=== PATIENT | male | born 1955 | race Two or more races ===

== ENCOUNTER → 2020-04-13 10:33 | Outpatient (BNVA) | payer MEDICARE, MEDICAID, SELFPAY | PROVIDERS: PCP Internal Medicine; Visit Provider Internal Medicine Pulmonary Disease | DX: R06.00 Dyspnea, unspecified (principal); J45.909 Unspecified asthma, uncomplicated; G47.33 Obstructive sleep apnea (adult) (pediatric) | CPT/HCPCS: 99202 ==

== ENCOUNTER → 2020-04-24 13:38 | Outpatient (BNVA) | payer MEDICARE, MEDICAID, SELFPAY | PROVIDERS: PCP Internal Medicine; Visit Provider Nurse Practitioner Family | DX: Z76.89 Persons encountering health services in other specified circumstances (principal) | CPT/HCPCS: Q3014 ==

== ENCOUNTER 2020-05-08 10:23 | Outpatient (REF) | payer MEDICARE, MEDICAID, SELFPAY | END 2020-05-08 10:24 | disposition home or self-care (01) | LOC: HO.RESP 10:23 | PROVIDERS: Visit Provider Internal Medicine Pulmonary Disease | DX: Z13.89 Encounter for screening for other disorder (principal) ==

== ENCOUNTER 2020-05-14 10:40 | Outpatient (REF) | payer MEDICARE, MEDICAID, SELFPAY ==
--- NOTE | 2020-05-14 17:15 | PFT_ITS ---
FLOWS: FEV1 is 121% of predicted at 2.97 L. FVC 105% of predicted at 3.47 L. FEV1 to FVC ratio of 0.86. No bronchodilator response. LUNG VOLUMES: Total lung capacity 84% of predicted at 4.55 L. Residual volume 54% of predicted at 1.04 L. Slow vital capacity 101% of predicted at 3.51 L. Expiratory reserve volume 85% of predicted at 0.69 L. Diffusion capacity is normal. In comparison to pulmonary function tests performed in November of 2017, FEV1 has been without significant changes; FVC has increased by 0.21 L; total lung capacity has increased by 0.38 L; residual volume and slow vital capacity have been without significant changes; expiratory reserve volume has increased by 0.5 L; diffusion capacity has increased by 1.39 mL/minute per mmHg. IMPRESSION: No obstructive or restrictive ventilatory defect. No bronchodilator response. Essentially normal pulmonary function tests. MD TONY Hernandez/MODL / [id number]
== END 2020-05-14 10:41 | disposition home or self-care (01) ==
LOC: HO.RESP 10:40
PROVIDERS: PCP Internal Medicine; Visit Provider Internal Medicine Pulmonary Disease
DX: R06.00 Dyspnea, unspecified (principal)
CPT/HCPCS: 94060; 94727; 94729

== ENCOUNTER → 2020-05-25 12:56 | Outpatient (REF) | payer MEDICARE, MEDICAID, SELFPAY ==
--- NOTE | 2020-05-25 13:00 | CA_ITS ---
Transthoracic Echocardiogram Patient (Last, First, Middle): Mitchel Castillo, Gender: Male Date of : 1955 Age: 64 Procedure Date: 05/25/2020 Procedure Type: Transthoracic Echocardiogram Location: OP Height: 162.56 cm Weight: 78.93 kg BSA: 1.84 m2 Heart Rate: bpm BP: 130 / 70 mmHg Quarryman: ANDRÉS Referring MD: Sander Smith MD Symptoms: R06.00 Study Quality: Fair ECG Rhythm: Sinus Conclusions: - The left ventricular systolic function is low normal. The visually estimated ejection fraction is between 50-55%. - Possible hypokinesis in the basal inferior wall, but limited endocardial definition. - No obvious valvular pathology seen on this study. Findings Left Ventricle Normal left ventricular cavity size. There is mildly increased left ventricular wall thickness. The left ventricular systolic function is low normal. The visually estimated ejection fraction is between 50-55%. Diastolic function is normal for age. E/E prime ratio is <8, consistent with normal filling pressures. Possible hypokinesis in the basal inferior wall, but limited endocardial definition. Right Ventricle Normal right ventricular cavity size and systolic function. Atria The left atrium is normal in size. The right atrium is normal in size. Aortic Valve There is a normal trileaflet aortic valve. There is no aortic valve stenosis. There is no aortic valve regurgitation. Mitral Valve The mitral valve appears normal. There is no mitral valve regurgitation. There is no mitral valve stenosis. Pulmonic Valve The pulmonic valve was not well visualized. Tricuspid Valve Normal tricuspid valve structure. There is trace tricuspid valve regurgitation. The pulmonary artery systolic pressure is normal. Great Vessels The aortic annulus, sinuses of valsalva, asc aorta, and aortic arch are normal in size. Venous The inferior vena cava is normal in size and collapses greater than 50% with inspiration. Pericardium/Pleural There is a trivial pericardial effusion. Prior Study Comparison No prior study available for comparison. Recommendations, Care & Conclusions No obvious valvular pathology seen on this study. Measurements 2D Linear Measurements IVSd: 1.07 0.6-0.9/0.6-1.0 cm LVIDd: 3.87 3.9-5.3/4.2-5.9 cm LVIDd Index: 2.10 2.4-3.2/2.2-3.1 cm/m2 LVIDs: 2.65 2.0-3.6 cm LVPWd: 1.06 0.7-1.1 cm Ao Root: 3.20 2.1-3.5 cm LA Diam: 2.80 2.7-3.8/3.0-4.0 cm LAIDs Index: 1.52 1.5-2.3 cm/m2 LV Mass: 164.36 67-162/88-224 g LV Mass Index: 89.33 43-95/49-115 g/m2 LVOT Diam: 2.20 3.0+(-)1.3 cm 2D Systolic Function EF 4C: 54.80 >55% EF 2C: 51.40 >55% EF BiP: 53.90 >55% Mitral Valve MV Pk E: 0.56 MV PK A: 0.67 MV Decel Time: 317.00 E/A: 0.80 E'Lateral: 7.40 E'Medial: 6.85 E/E' Med: 8.10 E/E' Lat: 7.50 PHT: 93.00 MVA PHT: 2.37 Decel [place]: 1.76 Aortic Valve AoV Pk Madhu: 1.29 AoV Mn Madhu: 0.86 AoV VTI: 0.26 AoV Pk Grad: 7.00 Aov Mn Grad: 3.00 YOAV Cont.VTI: 2.41 LVOT LVOT Pk Madhu: 0.77 LVOT Mn Madhu: 0.56 LVOT VTI: 0.17 LVOT Pk Grad: 2.00 LVOT Mn Grad: 1.00 LVOT Diam: 2.20 LVOT Area: 3.80 Diastolic Function MV Pk E: 0.56 MV Pk A: 0.67 E/A: 0.80 E'Medial: 6.85 E/E' Med: 8.10 E' Laterial: 7.40 E/E' Lat: 7.50 Tricuspid Valve TR Pk Madhu: 1.68 TR Pk Grad: 11.00 RA Press: 3.00 RVSP: 14.00 Great Vessels Aorta Ao Root-2D: 3.20 2.0-3.7 cm Ao Asc: 3.10 2.1-3.4 cm Ao Arch: 2.20 Updated in Other Vendor System with Status of Final Mario Spain MD electronically signed on 05/26/2020 11:09:55 AM with status of Final
== END ==
LOC: HO.CARD 12:56
PROVIDERS: Visit Provider Internal Medicine Pulmonary Disease
DX: R06.00 Dyspnea, unspecified (principal)
CPT/HCPCS: 93306

== ENCOUNTER 2020-05-28 09:13 | Outpatient (REF) | payer MEDICARE, MEDICAID, SELFPAY ==
[2020-05-28 11:26] LABS: Hematocrit 47.4 % (42-52); Hemoglobin 15.9 g/dl (14.0-18.0); Mean Corpuscular HGB Conc 33.5 g/dl (31.0-36.0); Mean Corpuscular Hemoglobin 29.1 pg (27.0-33.0); Mean Corpuscular Volume 86.7 fL (80-98); Mean Platelet Volume 9.6 fL (9.4-12.4); Platelet Count 258 X10*3/uL (160-400); Red Blood Count 5.47 X10*6/uL (4.60-5.80); Red Cell Distribution Width 13.1 % (11.0-16.0); White Blood Count 7.7 X10*3/uL (4.8-10.8)
[2020-05-28 11:30] LABS: Prothrombin Time 11.7 SEC (10.8-13.0)
[2020-05-28 11:53] LABS: Anion Gap 14 (12-20); Blood Urea Nitrogen 22 mg/dL (9-16); Calcium 9.3 mg/dL (8.4-10.2); Carbon Dioxide 26 mmol/L (22-29); Chloride 105 mmol/L (96-108); Estimated Glomerular Filt Rate > 60; Glucose Random 96 mg/dL (60-115); Potassium 4.2 mmol/L (3.3-5.1); Sodium 141 mmol/L (135-145)
== END 2020-05-28 09:14 | disposition home or self-care (01) ==
LOC: HO.LAB 09:13
PROVIDERS: PCP Internal Medicine; Visit Provider Internal Medicine Cardiovascular Disease
DX: R06.09 Other forms of dyspnea (principal); J44.9 Chronic obstructive pulmonary disease, unspecified; I10 Essential (primary) hypertension; Z79.899 Other long term (current) drug therapy
CPT/HCPCS: 36415; 80048; 85027; 85610; 93005; 99202

== ENCOUNTER → 2020-06-10 09:34 | Outpatient (BNVA) | payer MEDICARE, MEDICAID, SELFPAY | PROVIDERS: PCP Internal Medicine; Visit Provider Internal Medicine Pulmonary Disease | DX: Z01.811 Encounter for preprocedural respiratory examination (principal); J45.909 Unspecified asthma, uncomplicated; F45.8 Other somatoform disorders; Z87.891 Personal history of nicotine dependence | CPT/HCPCS: 99212 ==

== ENCOUNTER 2020-06-17 15:15 | Outpatient (REF) | payer MEDICARE, MEDICAID, SELFPAY ==
--- NOTE | ~2020-06-17 | MR_ITS ---
EXAMINATION: MR LUMBAR SPINE WITHOUT CONTRAST CLINICAL INFORMATION: Low back pain. COMPARISON: Lumbar spine radiographs 07/26/2012. TECHNIQUE: MRI of the lumbar spine was obtained using routine sequences without contrast. FINDINGS: Alignment is normal. Vertebral heights are preserved. No acute bone marrow signal changes. There is slight loss of intervertebral disc height and T2 signal intensity at L5-S1 related to disc degeneration. The tip of the conus medullaris is located at L1-L2. No mass effect on the conus. Visualized distal cord signal intensity is normal. At L1-L2 the annular contour is normal. No canal or neuroforaminal compromise. At L2-L3 the annular contour is normal. No canal or neuroforaminal compromise. At L3-L4 the annular contour is normal. No canal or neuroforaminal compromise. At L4-L5 there is a slightly bulging disc. Bilateral facet degenerative change. No canal stenosis. No mass effect on the traversing or foraminal nerve roots. At L5-S1 there is a slightly bulging disc. Bilateral facet degenerative change. No canal stenosis. Mild mass effect on the right L5 foraminal nerve root. Limited visualization of retroperitoneal anatomy reveals a well marginated benign-appearing cystic lesion arising from the left kidney. Psoas and paraspinal muscle groups are symmetric. MR/MR lumbar spine wo con IMPRESSION: There is disc degeneration at levels of L4-L5 and L5-S1. No canal stenosis. A bulging disc in conjunction with facet degenerative change at L5-S1 causes mild mass effect on the right L5 foraminal nerve root. Otherwise no mass effect on the traversing or foraminal nerve roots elsewhere within the lumbar spine.
== END 2020-06-17 15:16 | disposition home or self-care (01) ==
LOC: HO.MRI 15:15
PROVIDERS: Visit Provider Internal Medicine
DX: M54.5 Low back pain (principal)
CPT/HCPCS: 72148

== ENCOUNTER → 2020-08-05 09:00 | Outpatient (BNVA) | payer MEDICARE, MEDICAID, SELFPAY | PROVIDERS: PCP Internal Medicine; Visit Provider Nurse Practitioner Family ==

== ENCOUNTER 2021-09-03 12:02 | Outpatient (REF) | payer MEDICARE, MEDICAID, SELFPAY ==
--- NOTE | ~2021-09-03 | XR_ITS ---
EXAMINATION: XR HAND WRIST, RIGHT XR HAND WRIST, LEFT CLINICAL INFORMATION: Carpal tunnel syndrome. COMPARISON: None TECHNIQUE: Right hand and wrist are imaged together in 3 large fbdzf-by-dduc images. A navicular view of the right wrist is also included for a total of 4 views. Left hand and wrist are imaged together in 3 large bblvj-gy-lgln images. A navicular view of the left wrist is also included for a total of 4 views. FINDINGS: Right: Normal bony mineralization. No periarticular demineralization. No fracture, dislocation, destructive process. Ulnar variance is neutral. The carpus shows no narrowing or erosive change or chondrocalcinosis. The MCP and interphalangeal joints show no focal narrowing or erosive change. Left: Normal bony mineralization. No periarticular demineralization. No fracture, dislocation, destructive process. Ulnar variance is neutral. The carpus shows no narrowing or articular erosions. There are some punctate fine calcifications in region of ulnar side of triangular fibrocartilage. No erosive change. The MCP and interphalangeal joints show no focal narrowing or erosive change. XR/XR hand wrist LT IMPRESSION: -Bilateral: No fracture, dislocation, destructive process, or arthropathy. -Left: Fine chondrocalcinosis in region of the ulnar side triangular fibrocartilage.
--- NOTE | ~2021-09-03 | XR_ITS ---
EXAMINATION: XR HAND WRIST, RIGHT XR HAND WRIST, LEFT CLINICAL INFORMATION: Carpal tunnel syndrome. COMPARISON: None TECHNIQUE: Right hand and wrist are imaged together in 3 large wwxts-dg-rleh images. A navicular view of the right wrist is also included for a total of 4 views. Left hand and wrist are imaged together in 3 large lezmn-ve-gjuk images. A navicular view of the left wrist is also included for a total of 4 views. FINDINGS: Right: Normal bony mineralization. No periarticular demineralization. No fracture, dislocation, destructive process. Ulnar variance is neutral. The carpus shows no narrowing or erosive change or chondrocalcinosis. The MCP and interphalangeal joints show no focal narrowing or erosive change. Left: Normal bony mineralization. No periarticular demineralization. No fracture, dislocation, destructive process. Ulnar variance is neutral. The carpus shows no narrowing or articular erosions. There are some punctate fine calcifications in region of ulnar side of triangular fibrocartilage. No erosive change. The MCP and interphalangeal joints show no focal narrowing or erosive change. XR/XR hand wrist RT IMPRESSION: -Bilateral: No fracture, dislocation, destructive process, or arthropathy. -Left: Fine chondrocalcinosis in region of the ulnar side triangular fibrocartilage.
== END 2021-09-03 12:03 | disposition home or self-care (01) ==
LOC: HO.XRAY 12:02
PROVIDERS: PCP Internal Medicine; Visit Provider Internal Medicine
DX: G56.03 Carpal tunnel syndrome, bilateral upper limbs (principal)
CPT/HCPCS: 73110; 73130

== ENCOUNTER 2022-11-29 11:11 | Outpatient (AMB) | payer MEDICARE, MEDICAID, SELFPAY ==
[2022-11-29 11:12] VITALS: BP 144/90; PULSE 74; O2SAT 96; BMI 32.4
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
[2022-11-29 12:00] VITALS: BP 140/82
== END 2022-11-29 12:04 | disposition home or self-care (01) ==
PROVIDERS: PCP Internal Medicine; Visit Provider Nurse Practitioner Family
DX: G43.909 Migraine, unspecified, not intractable, without status migrainosus (principal); K21.9 Gastro-esophageal reflux disease without esophagitis; I10 Essential (primary) hypertension; J45.909 Unspecified asthma, uncomplicated; Z12.5 Encounter for screening for malignant neoplasm of prostate; M25.572 Pain in left ankle and joints of left foot; G47.33 Obstructive sleep apnea (adult) (pediatric); Z76.89 Persons encountering health services in other specified circumstances
CPT/HCPCS: 99204

== ENCOUNTER 2022-12-01 09:24 | Outpatient (REF) | payer MEDICARE, MEDICAID, SELFPAY ==
--- NOTE | ~2022-12-01 | XR_ITS ---
EXAMINATION: XR TIBIA AND FIBULA, LEFT CLINICAL INFORMATION: Pain. COMPARISON: Left knee radiographs dated 07/26/2012. TECHNIQUE: AP and lateral views of the left tibia and fibula were obtained. FINDINGS: Bony alignment and mineralization are normal. No fracture. No osseous lesions. A 1.4 x 4 mm soft tissue calcifications are seen within the posterior calf, possibly atherosclerotic. XR/XR ankle LT min 3V IMPRESSION: Unremarkable left tibia and fibula. EXAMINATION: XR ANKLE, LEFT CLINICAL INFORMATION: Pain. COMPARISON: Left foot radiographs dated 08/11/2011. TECHNIQUE: AP, lateral, and mortise views of the left ankle. FINDINGS: Bony alignment and mineralization are normal. No fracture, dislocation or left ankle joint effusion is seen. Boehler's angle is normal. There are are small posterior plantar calcaneal spurs. No focal soft tissue swelling, gas or foreign body is seen. IMPRESSION: 1. No fracture, dislocation or left ankle joint effusion is seen. 2. There are small posterior plantar calcaneal spurs.
--- NOTE | ~2022-12-01 | XR_ITS ---
EXAMINATION: XR TIBIA AND FIBULA, LEFT CLINICAL INFORMATION: Pain. COMPARISON: Left knee radiographs dated 07/26/2012. TECHNIQUE: AP and lateral views of the left tibia and fibula were obtained. FINDINGS: Bony alignment and mineralization are normal. No fracture. No osseous lesions. A 1.4 x 4 mm soft tissue calcifications are seen within the posterior calf, possibly atherosclerotic. XR/XR tibia fibula LT 2V IMPRESSION: Unremarkable left tibia and fibula. EXAMINATION: XR ANKLE, LEFT CLINICAL INFORMATION: Pain. COMPARISON: Left foot radiographs dated 08/11/2011. TECHNIQUE: AP, lateral, and mortise views of the left ankle. FINDINGS: Bony alignment and mineralization are normal. No fracture, dislocation or left ankle joint effusion is seen. Boehler's angle is normal. There are are small posterior plantar calcaneal spurs. No focal soft tissue swelling, gas or foreign body is seen. IMPRESSION: 1. No fracture, dislocation or left ankle joint effusion is seen. 2. There are small posterior plantar calcaneal spurs.
[2022-12-01 09:39] LABS: MANUAL DIFF FLAG NO
[2022-12-01 10:06] LABS: Basophils Percent Auto 0.4 % (0-2); Eosinophils Absolute Auto 0.2 X10*3/uL (0.0-0.4); Eosinophils Percent Auto 2.7 % (0-4); Hematocrit 46.4 % (42.0-52.0); Hemoglobin 16.1 g/dl (14.0-18.0); Imm Gran Abs Auto 0.03 X10*3/uL (0.00-0.03); Imm Gran Pct Auto 0.4 % (0.0-0.4); Lymphocytes Absolute Auto 1.9 X10*3/uL (1.2-4.9); Lymphocytes Percent Auto 28.4 % (20-40); Mean Corpuscular HGB Conc 34.7 g/dl (31.0-36.0); Mean Corpuscular Hemoglobin 30.1 pg (27.0-33.0); Mean Corpuscular Volume 86.7 fL (80.0-98.0); Mean Platelet Volume 9.8 fL (9.4-12.4); Monocytes Absolute Auto 0.5 X10*3/uL (0.1-1.2); Monocytes Percent Auto 7.9 % (2-11); Neutrophils Percent Auto 60.2 % (45-73); Platelet Count 255 X10*3/uL (160-400); Red Blood Count 5.35 X10*6/uL (4.60-5.80); Red Cell Distribution Width 13.1 % (11.0-16.0); White Blood Count 6.7 X10*3/uL (4.8-10.8)
[2022-12-01 11:22] LABS: Alanine Aminotransferase 15 U/L (0-40); Albumin Level 4.3 g/dL (3.5-5.0); Alkaline Phosphatase 52 U/L (39-117); Anion Gap 15 (12-20); Aspartate Amino Transferase 16 U/L (5-37); Bilirubin Total 0.6 mg/dL (0.0-1.0); Blood Urea Nitrogen 22 mg/dL (9-16); Calcium 9.4 mg/dL (8.4-10.2); Carbon Dioxide 24 mmol/L (22-29); Chloride 107 mmol/L (96-108); Cholesterol 236 mg/dL (<200); Estimated Glomerular Filt Rate > 60; Glucose Fasting 97 mg/dL (60-99); HDL Cholesterol 44 mg/dL (>40); LDL Cholesterol Calculated 162 mg/dL (<100); Sodium 142 mmol/L (135-145); Total Protein 7.3 g/dL (6.5-8.0); Triglycerides 150 mg/dL (<150)
[2022-12-01 13:42] LABS: Folate 14.3 ng/mL (> or = 4.0); Prostate Specific Antigen 1.01 ng/mL (<0.05-4.0); Vitamin B12 478 pg/mL (200-900)
== END 2022-12-01 09:25 | disposition home or self-care (01) ==
LOC: HO.LAB 09:24
PROVIDERS: PCP Nurse Practitioner Family; Visit Provider Nurse Practitioner Family
DX: Z12.5 Encounter for screening for malignant neoplasm of prostate (principal); I10 Essential (primary) hypertension; M25.572 Pain in left ankle and joints of left foot; K21.9 Gastro-esophageal reflux disease without esophagitis; G43.909 Migraine, unspecified, not intractable, without status migrainosus; J45.909 Unspecified asthma, uncomplicated
CPT/HCPCS: 36415; 73590; 73610; 80053; 80061; 82306; 82607; 82746; 84153; 84443; 85025

== ENCOUNTER 2024-11-19 14:27 | Outpatient (AMB) | payer MEDICARE, MEDICAID, SELFPAY ==
--- NOTE | 2024-11-19 14:30 | A.OFFVIS_ITS ---
Vital Signs 11/19/24 14:39 Height 5 ft 2 in Weight 176 lb BMI 32.2 BP 124/70 Blood Pressure Location Rt brachial Position Sitting Pulse 89 Pulse Source Pulse Oximeter Pulse Oximetry (%) 99 Oxygen Delivery Method Room Air Intake Visit Reasons: Pulmonary embolism Cook Helper Vegetable Required: Yes Cook Helper Vegetable Services: Cook Helper Vegetable Present Cook Helper Vegetable Name: Kandace Espinosa Accompanied by: Family/Other Allergies No Known Allergies (No Known Allergies*) Allergy (Verified 11/29/22 11:38) Medication List - Last Reconciled 11/19/24 by Bruna Aguirre LPN albuterol sulfate 90 mcg/actuation 2 puffs inhalation Q4H PRN apixaban (Eliquis) 5 mg PO BID exhhpjupzt-ohmrlsmzazlvx-tbfe 50-325-40 mg 1 tab PO DAILY PRN fluticasone propion-salmeterol 250-50 mcg/dose 1 inh inhalation BID fluticasone propionate 220 mcg/actuation (Flovent HFA) 1 puff inhalation BID 30 days lidocaine 4% (Aspercreme (lidocaine)) 1 patch topical DAILY PRN omeprazole 40 mg PO DAILY pravastatin 10 mg PO BEDTIME HPI HPI Pulmonary embolism: Details: Mitchel is a pleasant 69 year old male, former minimal smoker, with underlying asthma, ?LUCINA non compliant with CPAP and h/o recent unprovoked PE 10/24/2024 on Eliquis. He was referred by PCP for pulmonary evaluation. He initially was evaluated at [facility] with acute onset dizziness and intermittent right sided chest pain. Ddimer elevated and underwent CTA which revealed a solitary subsegmental pulmonary embolism in the right upper lobe without radiographic findings to indicate right heart strain. He was started on a heparin drip and transitioned to Eliquis. He denies prior h/o DVT/PE, h/o malignancy, recent trauma, surgery, prolonged trips or illness. He denies any family h/o blood clotting disorders. He has been compliant with Eliquis and tolerating well, receiving refills from PCP. Per patient, PCP recommended a total of 6 months of anticoagulation unless hematologic work up reveals any hypercoaguable conditions. He has upcoming evaluation with Hematology with either [facility] or [facility], [facility] notify office. He has a long standing history of asthma continues to report dyspnea with exertion and intermittent cough, using albuterol frequently, inconsistent use of daily inhaler, unclear what patient was previously prescribed. He denies recent PFT. He reports possible allergic component, no recent allergy testing. He reports symptoms are exacerbated at home, noting neighbors smoke which travels into apartment as well as old carpeting. 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 He reports prior h/o LUCINA previously using CPAP therapy, unknown severity, however states device was not recording despite consistent use and found to be noncompliant. He continues with daytime fatigue, loud snoring and nonrestorative sleep interested in restarting CPAP therapy. [facility] Medical History (Updated 11/20/24 @ 14:21 by Francine Gates NP) Laboratory examination ordered as part of a routine general medical examination HTN (hypertension) Sleep apnea GERD (gastroesophageal reflux disease) Chest pain Dyspnea on exertion History of palpitations COPD (chronic obstructive pulmonary disease) Preop pulmonary/respiratory exam Surgical History Hx of cardiac catheterization Family History Father Diabetes Mother Diabetes Social History (Updated 11/19/24 @ 14:37 by Bruna Aguirre LPN) Household Members: Spouse and Children Alcohol intake: never Patient Tobacco Use Status: Former Tobacco user Years Smoked: 4 yrs less than 1ppd service: No Current occupational status: disabled Cognitive needs: Yes Hearing needs: No Vision needs: No Review of Systems Const Denies chills, Denies excessive sweating, Denies fever(s), Denies headache(s) and Denies night sweats Eyes Denies dry eyes, Denies irritation and Denies itchy eyes ENT Reports Normal hearing present, Denies headache(s), Denies nasal congestion, Denies nasal discharge, Denies post nasal drip and Denies sore throat Card Denies chest pain, Denies chest pain at rest, Denies chest pain with activity, Denies claudication, Denies leg edema, Denies orthopnea and Denies paroxysmal nocturnal dyspnea Resp Denies chest congestion, Denies excessive phlegm production, Denies pain on inspiration, Denies pain with cough and Denies stridor Musc Denies myalgias Neuro Reports Normal hearing present and Denies headache(s) Endo Denies excessive sweating Michael/Lymph Denies lymphadenopathy Aller/Immun Denies itchy eyes and Denies seasonal rhinorrhea Physical Exam Vital Signs: Last Vital Signs Pulse 89 11/19/24 14:39 BP 124/70 11/19/24 14:39 Pulse Ox 99 11/19/24 14:39 Oxygen Delivery Method Room Air 11/19/24 14:39 BMI result Body Mass Index 32.2 Const General: cooperative, healthy appearing, comfortable, no acute distress, well developed and alert Orientation/consciousness: patient oriented x3 Limitations: no limitations HEENT Head: Yes normal to inspection, Yes normocephalic and Yes atraumatic Ears: hearing grossly normal bilaterally and external ears normal Eyes General: appearance normal, both eyes and all related structures Eyelids: Yes eyelids normal Sclerae: sclerae normal EOM: EOMs intact bilaterally Neck Neck: Yes normal visual inspection and Yes no lymphadenopathy Lymphatic: no lymphadenopathy noted Chest Chest palpation & inspection: normal inspection of the chest Resp Effort & Inspection: normal respiratory effort, able to speak in complete sentences, no audible wheezes, no cough, no stridor, not tachypneic, no tripod positioning and no use of accessory muscles Auscultation: clear to auscultation bilaterally Cardio Jugular venous distension: no JVD Rate: regular rate Rhythm: regular rhythm Skin Other: warm, dry General skin exam: no rashes or lesions noted Neuro General: patient oriented x3 Cranial nerves: Yes Normal hearing present Cognition (Neuro): normal cognition Gait exam (Neuro): Normal gait present Extrem General: Yes normal to inspection, Yes capillary refill normal, Yes no clubbing, cyanosis or edema and Yes no pedal edema Psych Appearance: grossly normal and well kempt Speech and movement: Normal speech and movement present and Clear speech present Affect: normal affect Attitude: cooperative Thought process: Normal thought process present Thought content: Normal thought content present Insight: Good insight present (Psych) Judgement: Good judgement present (Psych) Results Reviewed Results Reviewed: RESULT: CT Angio Chest PROCEDURE: CT Angio Chest CLINICAL INDICATION: Hx of Present Illness: dizzy; Reason: Other:; PE suspected, Intermediate prob, positive D-dimer; Clinical Question(s): Pulmonary Embolism, Pulmonary Embolism TECHNIQUE: Spiral CTA of the chest was performed after rapid IV contrast administration without cardiac gating, triggered by an ZIA on the main pulmonary artery. Images are formatted in multiple planes using 2-D multiplanar and 3-D maximum intensity projection. 75 cc of Isovue 300 was administered intravenously. Weight-based protocol using automatic tube modulation was used to optimize exposure parameters. RADIATION DOSE PARAMETERS: CTDIvol Body: 10.47 mGy, DLP Body: 545 mGy*cm. COMPARISON: FINDINGS: CTA: Pulmonary arteries: There is no central, lobar, or segmental embolism. There is a solitary subsegmental embolism in the right upper lobe as seen on images 207-216 series 6. It is also well-demonstrated on coronal image 54. Subsegmental emboli in the lower lungs were not be detected due to respiratory motion artifact.. There is no elevation of the right ventricle/left ventricle ratio. Thoracic aorta: No thoracic aortic aneurysm or dissection.. OTHER FINDINGS: TRACHEA AND MAINSTEM BRONCHI: Patent without evidence of tracheal or endobronchial lesion. LUNGS AND PLEURA: Mild dependent atelectasis. The lungs are otherwise clear. No pleural effusion. No pneumothorax. MEDIASTINUM AND JOVAN: The heart is of normal size. No pericardial effusion.. There is no mediastinal or hilar adenopathy.. There is no esophageal abnormality. BONES OF THE CHEST: There is no thoracic spine compression fracture. No fracture ribs or sternum.. VISUALIZED UPPER ABDOMEN: No worrisome incidental abnormality.. IMPRESSION: CTA 1. There is a solitary subsegmental pulmonary embolism in the right upper lobe. No associated elevation of right ventricle/left ventricle ratio that would suggest right heart strain.. 2. No thoracic aortic aneurysm or dissection.. CHEST 1. Mild dependent atelectasis.. 2. No other pulmonary, pleural, or mediastinal abnormality. 3. No fracture. The finding of pulmonary embolism was communicated by telephone department physician caring for the patient by myself at 1245 hours 10/24/2024. WSN: [id number] Ordering Physician: Jake Bales Reason For Exam PE suspected, Intermediate prob, positive D-dimer;Other: Signature Line Dictated By: Dennis Birmingham MD Dictated Date/Time: 10/24/24 12:49 p Reviewed By: Dennis Birmingham MD Signed By: Dennis Birmingham MD Signed Date/Time: 10/24/24 12:49 pm Assessment & Plan Assessment & Plan (1) Asthma: Code(s): J45.909 - Unspecified asthma, uncomplicated Category: Medical (2) History of pulmonary embolism: Code(s): Z86.711 - Personal history of pulmonary embolism Category: Medical (3) Environmental allergies: Code(s): Z91.09 - Other allergy status, other than to drugs and biological substances Category: Medical (4) Daytime somnolence: Code(s): R40.0 - Somnolence Category: Medical Plan The patient will continue taking Eliquis twice daily as prescribed for recent diagnosis of PE. Patient will undergo evaluation with telemarketer supervisor to further evaluate of any underlying hypercoagulable conditions and recommendations on length of treatment. He will call to notify office which practice he is scheduled with. Will send for CTA to assess for resolution of PE. Unclear what inhalers he is currently prescribed. Will send Breo. Educated on frequency of use, compliance and importance of good oral hygiene to prevent thrush. Will send for PFT as well as RAST to assess for an allergic component. Patient with prior h/o LUCINA, continues to be symptomatic, will send for home sleep study to reestablish diagnosis of LUCINA. All questions were answered and patient is in agreement of plan. Will follow up to review results or sooner if needed, Orders: Orders Complete Blood Count Auto Diff 11/19/24 Z91.09 - Other allergy status, other than to drugs and biological substances PFT pulmonary function test 11/19/24 J45.909 - Unspecified asthma, uncomplicated Resp Allergy Profile Region I 11/19/24 Z91.09 - Other allergy status, other than to drugs and biological substances Immunoglobulin E 11/19/24 Z91.09 - Other allergy status, other than to drugs and biological substances CT angio chest PE protocol 10 Weeks Z86.711 - Personal history of pulmonary embolism RT home sleep study Today R40.0 - Somnolence Medications: New fluticasone furoate-vilanterol 100-25 mcg/dose (Breo Ellipta) 1 inh inhalation DAILY 60 ea 3RF Discontinued fluticasone propionate 220 mcg/actuation (Flovent HFA) Discontinued Reason: Patient Completed Course 1 puff inhalation BID 30 days 1 ea 6RF R06.00 - Dyspnea, unspecified Coding Level of Care Code New Pt Level 4 (44452) Complex EM visit Add On G2211 Diagnoses Asthma J45.909 History of pulmonary embolism Z86.711 Environmental allergies Z91.09 Daytime somnolence R40.0
[2024-11-19 14:39] VITALS: BP 124/70; PULSE 89; O2SAT 99; BMI 32.2
--- OUTSIDE RECORDS SUMMARY | 2024-11-19 18:13 | XMS_ITS | Clinical Summary ---
Author Organization [address] [facility] Address [address] [place] [address] Phone Care Team Providers Care Applications Systems Analyst Name Role Phone Miah Manzo MD Primary Care Provider [phone] Allergies Active Allergy Reactions Criticality Noted Date Comments Atorvastatin 10/29/2024 Medications acetaminophen (TYLENOL) 500 mg tablet Take 1 tablet (500 mg total) by mouth every 6 (six) hours if needed. 4 Active fluticasone propionate (FLONASE) 50 mcg/actuation nasal spray 2 Sprays by Each Nare route daily. 2 puff 2 times /day 4 Active omeprazole (PriLOSEC) [address] capsule Take 1 capsule (40 mg total) by mouth 1 (one) time each day. 3 Active fluticasone-sa lmeterol (ADVAIR DISKUS) 250-50 mcg/dose diskus inhaler Inhale 1 puff by mouth 2 (two) times a day. Rinse mouth with water after use to reduce aftertaste and incidence of candidiasis. Do not swallow. 1 each 3 5 12/31/19 25 Active albuterol HFA (PROAIR HFA ; PROVENTIL HFA ; VENTOLIN HFA) 90 mcg/actuation inhaler Inhale 2 puffs by mouth every 6 (six) hours if needed for wheezing. 6.7 g 3 5 12/31/19 25 Active predniSONE (DELTASONE) 20 mg tablet Take 3 tab by mouth for 2 days, then 2 tab by mouth for 2 days, then 1 tab by mouth for 2 days. Take with food in the morning. 12 tablet 5 Active albuterol HFA (PROAIR HFA ; PROVENTIL HFA ; VENTOLIN HFA) 90 mcg/actuation inhaler Inhale 2 puffs by mouth every 6 (six) hours if needed for wheezing or shortness of breath. 6.7 g 5 Active ibuprofen (ADVIL,MOTRIN) 600 mg tablet Take 1 tablet (600 mg total) by mouth every 8 (eight) hours if needed for mild pain. Active Eliquis 5 mg tablet Take 1 tablet (5 mg total) by mouth 2 (two) times a day. 5 Active apixaban (Eliquis) 5 mg tablet Take 1 tablet (5 mg total) by mouth 2 (two) times a day. 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 Advised to restart aspirin 81 mg daily Coronary artery disease invo lving [place] artery of transplanted heart without angina pectoris 01/21/2022 Abnormal nuclear stress test 05/23/2016 Depression 02/12/2013 Herniated lumbar intervertebral disc 09/12/2008 Skin tag 02/07/2008 Hyperlipidemia 05/17/2007 Cervicalgia 03/15/2006 Back pain with radiation 03/08/2006 Overview (01/16/2024): Chronic back pain,h/o of abnomal MRI. Both knees Encounters Date Type Department Care Team Description 10/29/2024 1:30 PM EDT Office Visit Internal Medicine [address] [place] [address] Miah Manzo MD Hospital discharge follow-up (Primary Dx); PE (pulmonary thromboembolism) (CMS/HCC V24, CMS/HCC V28); Dizziness 10/16/2024 11:15 AM EDT Office Visit Internal Medicine - [place] [address] [facility] [address] [place] [phone] Miah Manzo MD Hypercholesterolemia (Primary Dx); Mild intermittent asthma without complication; Screening for colon cancer; Coronary artery disease involving [place] coronary artery of [place] heart without angina pectoris 10/01/2024 1:00 PM EDT Office Visit [facility] [address] [phone] Kaushal Moreau PA Mild intermittent extrinsic asthma with acute exacerbation (Primary Dx) 09/02/2024 Telephone Internal Medicine - [place] [address] [facility] [address] [place] [phone] Miah Manzo MD from Last 3 Months Immunizations Name Administration Dates Next Due H1N1 Inj Preservative Free 03/20/2009 Influenza Quadravalent, MDCK , 0.5ml, with preservative (Flucelvax) 6mo and older 11/24/2016 Influenza trivalent, 0.5mL, preservative free (Fluarix; FluLaval; Fluzone) ages 6mo and older (Afluria) 3 years and older 12/24/2015,01/01/2014,11/14/2012,2009,03/20/2009 Tdap Tetanus diptheria acell ular pertussis (Boostrix; Adacel) 7yo and older 07/19/2011 Surgical History Surgery Date Site/Laterality Comments HERNIA REPAIR PROCEDURE: HISTORICAL HERNIA REPAIR/ING Medical History Medical History Date Comments Lumbago 03/08/2006 DX:Lumbago Esophageal reflux DX:Esophageal reflux Hyperlipidemia DX:Hyperlipidemi a Heartburn 02/15/2016 DX:Heartburn Sleep apnea, obstructive 05/03/2012 DX:Slee p apnea, obstructive; COMMENT: Not using CPAP and of 02/2013 Bronchitis 12/24/2015 DX:Bronchitis Bronchitis 12/24/2015 Family History Medical History Relation Name Comments Other: tumor Sister 1 Blindness Neg Hx Cataract, glauc gillian, macular degeneration, strabismus Relation Name Status Comments Brother 1 Alive Brother 2 Alive Father DM Mother Alive HTN Sister 1 Alive Sister 2 Alive Sister 3 Alive Social History Tobacco Use Types Packs/Day Years Used Date Smoking Tobacco: Former Cigarettes Smokeless Tobacco: Never Alcohol Use Standard Drinks/Week Comments Yes 0 (1 standard drink = 0.6 oz pur e alcohol) Sex and Gender Information Value Date Recorded Sex Assigned at Not on file Legal Sex Male 10:43 AM EST Gender Identity Not on file Sexual Orientation Not on file Obstetrics History Last Filed Vital Signs Vital Sign Reading Time Taken Comments Blood Pressure 130/72 10/29/2024 1:56 PM EDT Pulse 73 10/29/2024 1:56 PM EDT Temperature 36.1 C (96.9 F) 10/29/2024 1:56 PM EDT Respiratory Rate 16 10/01/2024 1:05 PM EDT Oxygen Saturation 98% 10/29/2024 1:56 PM EDT Inhaled Oxygen Concentration - - Weight 75.7 kg (166 lb 12.8 oz) 10/29/2024 1:56 PM EDT Height 157.5 cm (5' 2 ) 10/29/2024 1:56 PM EDT Body Mass Index 30.51 10/29/2024 1:56 PM EDT Plan of Treatment Upcoming Encounters Date Type Department Care Team (Late st Contact Info) Description 01/10/2025 11:30 AM EST Office Visit [facility] Hematology Oncology [address] [place] [phone] Osbaldo Méndez MD [address] [place] [address] 04/23/2025 11:00 AM EST Office Visit Internal Medicine - [place] [address] [phone] Miah Manzo MD [address] [address] Health Maintenance Due Date Last Done Comments Zoster Vaccines (1 of 2) 1973 RSV Immunization Adult Patients (1 - Risk 60-74 years 1-dose series) 2014 COVID-19 Vaccine (3 - Moderna risk series) 12/09/2020 11/11/2020, 10/02/2020 Pneumococcal Vaccine: 50+ Years (2 of 2 - PPSV23) 10/22/2021 08/27/2021 Abdominal Aortic Aneurysm (AAA) Screen 02/13/2022 Colorectal Cancer Screening: Colonoscopy 02/13/2022 11/29/2007 Social Influencers of Health Screening 02/13/2022 Hypertension/CHF/CAD Annual BMP Blood Test 06/04/2024 06/05/2023 Influenza Vaccine (#1) 2024 , 01/08/2019, 12/15/2017, Additional history exists Falls Risk Assessment 10/16/2025 10/16/2024 , 10/16/2024, 05/30/2023 Medicare Annual Wellness Visit 10/16/2025 10/16/2024 Cholesterol Screening (Lipid Panel) 06/04/2028 06/05/2023, 10/27/2020 DTaP,Tdap,and Td Vaccines (3 - Td or Tdap) 08/28/2031 08/27/2021, 07/19/2011 Hepatitis C Screening Completed 02/01/2012 Depression Screening Completed 10/16/2024 HIB Vaccines Aged Out No longer eligi ble based on patient's age to complete this topic HPV Vaccines Aged Out No longer eligi ble based on patient's age to complete this topic Hepatitis A Vaccines Aged Out No long er eligible based on patient's age to complete this topic Hepatitis B Vaccines Aged Out No long er eligible based on patient's age to complete this topic IPV Vaccines Aged Out No longer eligi ble based on patient's age to complete this topic MMR Vaccines Aged Out No longer eligi ble based on patient's age to complete this topic Meningococcal ACWY Vaccine Aged Out N o longer eligible based on patient's age to complete this topic Meningococcal B Vaccine Aged Out No l onger eligible based on patient's age to complete this topic RSV Immunization Patients Under 20 months Aged Out No longer eligible based on patient's age to complete this topic Varicella Vaccines Aged Out No longer eligible based on patient's age to complete this topic Procedures Procedure Name Priority Date/Time Associated Diagnosis Comments POC RAPID [id number], MOLECULAR Routine 10/01/2024 3:00 PM EDT Mild intermittent extrinsic asthma with acute exacerbation ANNUAL BMP BLOOD TEST Routine 06/05/2023 LIPID PANEL Routine 06/05/2023 FALLS RISK ASSESSMENT Routine 05/30/2023 HEPATITIS C SCREENING Routine 02/01/2012 COLONOSCOPY Routine 11/29/2007 from Last 3 Months or Most Recently Relevant to Health Maintenance Results * Poc Rapid [id number], MOLECULAR (10/01/2024 3:00 PM EDT) [facility] COVID-19/SARS- COV-2 Rapid POC Negative Negative Internal Control Pass Yes Yes Swab Nasopharyngeal structure / Unknown 10/01/2024 3:00 PM EDT Kaushal ERIC POINT OF CARE TEST ENTER/E DIT ORDERABLES Final Result * Annual BMP Blood Test (06/05/2023) [facility] Annual BMP Blood Test abstracted [facility] Provider HEALTH MAINTENANCE Final Result * (ABNORMAL) Lipid panel (06/05/2023) [facility] LDL/HDL Ratio 4 0 - 4 Triglycerides 116 0 - 150 mg/dL Cholesterol 220(A) 0 - 200 mg/dL HDL 52 >=40 mg/dL LDL Cholesterol 145(A) 0 - 100 mg/dL Blood Venous blood specimen / Unknown Result [facility] Provider LAB BLOOD ORDERABLES Sade l Result * Falls Risk Assessment (05/30/2023) [facility] Falls Risk Assessment abstracted [facility] Provider HEALTH MAINTENANCE Final Result * Hepatitis C Screening (02/01/2012) [facility] Hepatitis C Screening abstracted [facility] Provider HEALTH MAINTENANCE Final Result * Colonoscopy (11/29/2007) [facility] Colonoscopy no interpretation , abstracted Anatomical Region Laterality Modality Other us Historical Provider HEALTH MAINTENANCE Final Result from Last 3 Months or Most Recently Relevant to Health Maintenance Insurance MEDICAID - [place] MEDICARE Care Teams Applications Systems Analyst Relationship Specialty Start Date End Date Miah Manzo MD [address] [facility] [address] [place] [address] PCP - General Internal Medicine 07/01/21
--- OUTSIDE RECORDS SUMMARY | 2024-11-19 18:13 | XMS_ITS | Clinical Summary ---
Author Organization [employer] Address [address] [facility] 7[address] [place] [address] Care Team Providers Care Group Home Counselor Name Role Phone Unavailable Primary Care Provider Unavailabl e Social History Tobacco Use Types Packs/Day Years Used Date Smoking Tobacco: Never Assessed Sex and Gender Information Value Date Recorded Sex Assigned at Male 01/03/2022 10:18 AM EDT Legal Sex Male 10:18 AM EDT Gender Identity Male 01/03/2022 10:18 AM EDT Sexual Orientation Choose not to disclose 2021 10:18 AM EDT Last Filed Vital Signs Vital Sign Reading Time Taken Comments Blood Pressure 132/80 08/27/2021 12:06 AM EDT Pulse 75 08/27/2021 12:06 AM EDT Temperature - - Respiratory Rate - - Oxygen Saturation - - Inhaled Oxygen Concentration - - Weight 77.6 kg (171 lb) 08/27/2021 12:06 AM EDT Height 157.5 cm (5' 2 ) 08/27/2021 12:06 AM EDT Body Mass Index 31.28 08/27/2021 12:06 AM EDT Plan of Treatment Health Maintenance Due Date Last Done Comments CT Colonography 1954 Colonoscopy 1954 Colorectal Cancer Screening 1954 Depression Screening 1954 FIT DNA/Cologuard 1954 FIT 1954 FOBT 1954 SDOH Screening 1954 Sigmoidoscopy 1954 Alcohol/Substance Use Screening 1966 Tobacco Screening 1966 Hepatitis C Screening 1972 Zoster Vaccines (1 of 2) 2004 RSV Patients and Patients Aged 60 years or older (1 - Risk 60-74 years 1-dose series) 2014 Pneumococcal Vaccine: 50+ Years (2 of 2 - PPSV23) 10/22/2021 08/27/2021 COVID-19 Vaccine (3 - 2024- season) 2024 11/11/2020, 10/02/2020 Influenza Vaccine (#1) 2024 0, 01/08/2019, 12/15/2017, Additional history exists Lipid Panel 10/27/2025 10/27/2020 DTaP/Tdap/Td Vaccines (3 - Td or Tdap) 08/28/2031 08/27/2021, 07/19/2011 HIB Vaccines Aged Out No longer eligi [...] patient's age to complete this topic Meningococcal Vaccine Aged Out No timothy di eligible based on patient's age to complete this topic RSV under 20 months Aged Out No longe r eligible based on patient's age to complete this topic Rotavirus Vaccines Aged Out No longer eligible based on patient's age to complete this topic Procedures Procedure Name Priority Date/Time Associated Diagnosis Comments LIPID PANEL, STANDARD Routine 10/27/2020 12:03 PM EDT from Last 3 Months or Most Recently Relevant to Health Maintenance Results * (ABNORMAL) LIPID PANEL, STANDARD (10/27/2020 12:03 PM EDT) Chol/HDLC Ratio 5.5(H) <5.0 (calc) [facility] Cholesterol, Total 251(H) <200 mg/dL [facility] HDL Cholesterol 46 > OR = 40 mg/dL [facility] LDL Cholesterol 169(H) mg/dL (calc) [facility] Comment: Reference range: <100 Desirable range <100 mg/dL for primary prevention; <70 mg/dL for patients with CHD or diabetic patients with > or = 2 CHD risk factors. LDL-C is now calculated using the Charlie calculation, which is a validated novel method providing better accuracy than the Friedewald equation in the estimation of LDL-C. Gene BAUGH et al. MELVIN. 2013;310(19): 8963-8575 (http://Kadriana.NanoPowers/faq/JKF005) Non-HDL Cholesterol 205(H) <130 mg/dL (calc) [facility] Comment: For patients with diabetes plus 1 major ASCVD risk factor, treating to a non-HDL-C goal of <100 mg/dL (LDL-C of <70 mg/dL) is considered a therapeutic option. Triglycerides 199(H) <150 mg/dL [facility] 10/27/2020 12:0 3 PM EDT us Dina Mayes MD LAB BLOOD ORDERABLES Fin al Result [facility] [address] from Last 3 Months or Most Recently Relevant to Health Maintenance Insurance [facility] STANDARD MEDICARE
--- OUTSIDE RECORDS SUMMARY | 2024-11-19 18:13 | XMS_ITS ---
Author Organization [facility] Address [address] [place] [phone] Phone Care Team Providers Care Technical Administrative Assistant Name Role Phone Miah Manzo MD Primary Care Provider [phone] Transitional Care Management Status:Ongoing (Active) Start date:10/25/2024 Enrollment date:10/28/2024 Enrollment reason:Identified using hospital discharge data Case Team Name Relationship Phone Faith Matthews LPN Care Manager(Responsible Staf f) [phone] Continued Care and Services Coordination
--- OUTSIDE RECORDS SUMMARY | 2024-11-19 18:13 | XMS_ITS ---
Author Name [facility] Organization Unknown Care Team Organization Name Specialty Phone Email Start Date End Da [facility] 10/23/2024
== END 2024-11-19 15:00 | disposition home or self-care (01) ==
LOC: HO.HPSW 14:28
PROVIDERS: PCP Internal Medicine; Visit Provider Nurse Practitioner Family
DX: J45.909 Unspecified asthma, uncomplicated (principal); Z86.711 Personal history of pulmonary embolism; Z91.09 Other allergy status, other than to drugs and biological substances; R40.0 Somnolence
CPT/HCPCS: 99204; G2211

== ENCOUNTER → 2024-11-19 14:27 | Outpatient (BNVA) | payer MEDICARE, MEDICAID, SELFPAY | PROVIDERS: PCP Internal Medicine; Visit Provider Nurse Practitioner Family | DX: J45.909 Unspecified asthma, uncomplicated (principal); R40.0 Somnolence; Z91.09 Other allergy status, other than to drugs and biological substances; Z86.711 Personal history of pulmonary embolism | CPT/HCPCS: 99202 ==

== ENCOUNTER 2024-11-25 11:00 | Outpatient (REF) | payer MEDICARE, MEDICAID, SELFPAY ==
[2024-11-25 11:15] LABS: MANUAL DIFF FLAG NO
[2024-11-25 11:57] LABS: Hematocrit 45.2 % (42.0-52.0); Hemoglobin 15.3 g/dl (14.0-18.0); Imm Gran Abs Auto 0.02 X10*3/uL (0.00-0.03); Imm Gran Pct Auto 0.3 % (0.0-0.4); Lymphocytes Absolute Auto 1.9 X10*3/uL (1.2-4.9); Mean Corpuscular HGB Conc 33.8 g/dl (31.0-36.0); Mean Corpuscular Hemoglobin 29.7 pg (27.0-33.0); Mean Corpuscular Volume 87.6 fL (80.0-98.0); NRBC Abs Auto 0.000 X10*3/uL (0.0-0.012); NRBC Pct Auto 0.0 /100WBC (0.0-0.2); Platelet Count 261 X10*3/uL (160-400); Red Blood Count 5.16 X10*6/uL (4.60-5.80); White Blood Count 6.9 X10*3/uL (4.8-10.8)
--- OUTSIDE RECORDS SUMMARY | 2024-11-25 13:40 | XMS_ITS ---
Author Organization 175 [facility] Address [address] [place] [phone] Phone Care Team Providers Care Media Center Specialist Name Role Phone Miah Manzo MD Primary Care Provider [phone] Transitional Care Management Status:Ongoing (Active) Start date:10/25/2024 Enrollment date:10/28/2024 Enrollment reason:Identified using hospital discharge data Case Team Name Relationship Phone Faith Matthews LPN Care Manager(Responsible Staf f) [phone] Continued Care and Services Coordination
--- OUTSIDE RECORDS SUMMARY | 2024-11-25 13:40 | XMS_ITS | Clinical Summary ---
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 Both knees Encounters Date Type Department Care Team Description 10/29/2024 1:30 PM EDT Office Visit Internal Medicine [address] [place] [address] Miah Manzo MD Hospital discharge follow-up (Primary Dx); PE (pulmonary thromboembolism) (CMS/HCC V24, CMS/HCC V28); Dizziness 10/16/2024 11:15 AM EDT Office Visit Internal Medicine - [place] [address] [facility] [address] [place] [phone] Miah Manzo MD Hypercholesterolemia (Primary Dx); Mild intermittent asthma without complication; Screening for colon cancer; Coronary artery disease involving nome coronary artery of nome heart without angina pectoris 10/01/2024 1:00 PM EDT Office Visit [facility] [address] [phone] Kaushal Moreau PA Mild intermittent extrinsic asthma with acute exacerbation (Primary Dx) 09/02/2024 Telephone Internal Medicine - [place] [address] [facility] [address] [place] [phone] Miah Mnazo MD from Last 3 Months Immunizations Name [...] Description 01/10/2025 11:30 AM EST Office Visit [facility] Hematology Oncology [address] [place] [phone] Osbaldo Méndez MD [address] [place] [address] 04/23/2025 11:00 AM EST Office Visit Internal Medicine - [place] [address] [phone] Miah Manzo MD [address] [address] Health Maintenance Due Date Last Done Comments [...] Priority Date/Time Associated Diagnosis Comments POC RAPID [id number], MOLECULAR Routine 10/01/2024 3:00 PM EDT Mild intermittent extrinsic asthma with acute exacerbation ANNUAL BMP BLOOD TEST Routine 06/05/2023 LIPID PANEL Routine 06/05/2023 FALLS RISK ASSESSMENT Routine 05/30/2023 HEPATITIS C SCREENING Routine 02/01/2012 COLONOSCOPY Routine 11/29/2007 from Last 3 Months or Most Recently Relevant to Health Maintenance Results * Poc Rapid [id number], MOLECULAR (10/01/2024 3:00 PM EDT) [facility] COVID-19/SARS- COV-2 Rapid POC Negative Negative Internal Control Pass Yes Yes Swab Nasopharyngeal structure / Unknown 10/01/2024 3:00 PM EDT Kaushal ERIC POINT OF CARE TEST ENTER/E DIT ORDERABLES Final Result * Annual BMP Blood Test (06/05/2023) [facility] Annual BMP Blood Test abstracted [facility] Provider HEALTH MAINTENANCE Final Result * (ABNORMAL) Lipid panel (06/05/2023) [facility] LDL/HDL Ratio 4 0 - 4 Triglycerides 116 0 - 150 mg/dL Cholesterol 220(A) 0 - 200 mg/dL HDL 52 >=40 mg/dL LDL Cholesterol 145(A) 0 - 100 mg/dL Blood Venous blood specimen / Unknown Result [facility] Provider LAB BLOOD ORDERABLES Sade l Result * Falls Risk Assessment (05/30/2023) [facility] Falls Risk Assessment abstracted [facility] Provider HEALTH MAINTENANCE Final Result * Hepatitis C Screening (02/01/2012) [facility] Hepatitis C Screening abstracted [facility] Provider HEALTH MAINTENANCE Final Result * Colonoscopy (11/29/2007) [facility] Colonoscopy no interpretation , abstracted Anatomical Region Laterality Modality Other us Historical Provider HEALTH MAINTENANCE Final Result from Last 3 Months or Most Recently Relevant to Health Maintenance Insurance MEDICAID - [place] MEDICARE Care Teams Senior Market Intelligence Consultant Relationship Specialty Start Date End Date Miah Manzo MD 175 [facility] [address] [place] [address] PCP - General Internal Medicine 07/01/21
--- OUTSIDE RECORDS SUMMARY | 2024-11-25 13:40 | XMS_ITS | Clinical Summary ---
Author Organization [employer] Address [address] [facility] [address] [place] [address] Care Team Providers Care Cabin Agent Name Role Phone Unavailable Primary Care Provider [...] LDL-C. Gene BAUGH et al. MELVIN. 2013;310(19): 2475-7045 (http://Vpon.[employer] Services/faq/NSD907) Non-HDL Cholesterol 205(H) <130 mg/dL (calc) [facility] Comment: For patients with diabetes plus 1 major ASCVD risk factor, treating to a non-HDL-C goal of <100 mg/dL (LDL-C of <70 mg/dL) is considered a therapeutic option. Triglycerides 199(H) <150 mg/dL [facility] 10/27/2020 12:0 3 PM EDT us Dina Mayes MD LAB BLOOD ORDERABLES Fin al Result [facility] [address] from Last 3 Months or Most Recently Relevant to Health Maintenance Insurance [facility] STANDARD MEDICARE
[2024-11-28 19:19] LABS: Class Alternaria alternata 0; Class Aspergillus fumigatus 0; Class Bermuda Grass 0; Class Birch 0; Class Cat Dander 0; Class Cladosporium herbarum 0; Class Cockroach 0; Class Common Ragweed 0; Class Cottonwood 0; Class Derm. pterony 0; Class Dermatophagoides farinae 0; Class Dog Dander 0; Class Elm 0; Class Maple Box Elder 0; Class Mountain Cedar 0; Class Mouse Urine Protein 0; Class Mugwort 0; Class Oak 0; Class Penicillium crysogenum 0; Class Rough Pigweed 0; Class Sheep Sorrel 0; Class Sycamore 0; Class Timothy Grass 0; Class Walnut Tree 0; Class White Ash 0; Class White Mulberry 0; D002 - IgE D farinae <0.10 kU/L; E001 - IgE Cat Dander <0.10 kU/L; E005 - IgE Dog Dander <0.10 kU/L; G006 - IgE Timothy Grass <0.10 kU/L; I006-IgE Cockroach, German <0.10 kU/L; M002 - IgE Cladosporium herbar <0.10 kU/L; M003 - IgE Aspergillus fumigat <0.10 kU/L; M006 - IgE Alternaria alternat <0.10 kU/L; T001 IgE Maple/Box Elder <0.10 kU/L; T006 - IgE Cedar, Mountain <0.10 kU/L; T007 - IgE Oak, White <0.10 kU/L; T008 IgE Elm, American <0.10 kU/L; T010 - IgE Walnut <0.10 kU/L; T011 - IgE Maple Leaf Sycamore <0.10 kU/L; T014 - IgE Cottonwood <0.10 kU/L; T015 - IgE Ash, White <0.10 kU/L; T070 - IgE White Mulberry <0.10 kU/L; W001 - IgE Ragweed, Short <0.10 kU/L; W006 - IgE Mugwort <0.10 kU/L; W014 IgE Pigweed, Common <0.10 kU/L; W018 IgE Sheep Sorrel <0.10 kU/L
== END 2024-11-25 11:01 | disposition home or self-care (01) ==
LOC: HO.LAB 11:00
PROVIDERS: Visit Provider Nurse Practitioner Family
DX: Z91.09 Other allergy status, other than to drugs and biological substances (principal)
CPT/HCPCS: 36415; 82785; 85025; 86003

== ENCOUNTER 2024-11-25 11:39 | Emergency (ER) | payer MEDICARE, MEDICAID, SELFPAY ==
[2024-11-25 11:43] VITALS: BP 150/75; PULSE 78; RESP 16; TEMP 36.2; O2SAT 98; BMI 31.7
--- NOTE | 2024-11-25 11:43 | ED.GENADULT ---
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 Related Data Home Medications ?Medication ?Instructions ?Recorded ?Confirmed albuterol sulfate 90 mcg/actuation 2 puff inhalation Q4H PRN 02/14/20 11/19/24 aerosol inhaler Shortness Of Breath Or Wheezing apixaban 5 mg tablet (Eliquis) 5 mg PO BID 11/19/24 11/19/24 Previous Rx's ?Medication ?Instructions ?Recorded imiqxvmlty-crhgyvtkpbgkt-dxwxqzih 1 tab PO DAILY PRN Headache #15 11/29/22 50 mg-325 mg-40 mg tablet tabs lidocaine 4 % topical patch 1 patch topical DAILY PRN pain #30 11/29/22 (Aspercreme (lidocaine)) ea omeprazole 40 mg capsule,delayed 40 mg PO DAILY #90 caps 11/29/22 release pravastatin 10 mg tablet 10 mg PO BEDTIME #90 tabs 12/20/22 fluticasone furoate 100 1 inh inhalation DAILY #60 ea 11/19/24 mcg-vilanterol 25 mcg/dose inhalation powder (Breo Ellipta) fluocinolone acetonide oil 0.01 % 5 drp otic (ear) left BID 7 days 11/25/24 ear drops (Flac Otic (ear) Oil) #20 mL meclizine 12.5 mg tablet 12.5 mg PO TID PRN vertigo 5 days 11/25/24 #20 tabs scopolamine base 1 mg over 3 days 1 patch transdermal Q3D PRN 11/25/24 transdermal patch vertigo 7 days #4 ea Allergies Allergy/AdvReac Type Severity Reaction Status Date / Time No Known Allergies (No Known Allergy Verified 11/25/24 11:45 Allergies*) Review of Systems Constitutional: Constitutional: Reports as per [facility] Past Medical History Medical History (Updated 11/25/24 @ 12:36 by Deshawn Lin DO) Laboratory examination ordered as part of a routine general medical examination HTN (hypertension) Sleep apnea GERD (gastroesophageal reflux disease) Chest pain Dyspnea on exertion History of palpitations COPD (chronic obstructive pulmonary disease) Preop pulmonary/respiratory exam Surgical History Hx of cardiac catheterization Family History Family History Father Diabetes Mother Diabetes Social History Social History (Updated 11/19/24 @ 14:37 by Bruna Aguirre LPN) Household Members: Spouse and Children Alcohol intake: never Patient Tobacco Use Status: Former Tobacco user Years Smoked: 4 yrs less than 1ppd service: No Current occupational status: disabled Cognitive needs: Yes Hearing needs: No Vision needs: No Physical Exam ED Vital Signs: Vital Signs - 24 hr 11/25/24 11:43 Temperature 97.2 F Pulse Rate 78 Respiratory Rate 16 Blood Pressure 150/75 H Pulse Oximetry 98 Oxygen Delivery Method Room Air BMI result Body Mass Index 31.7 Const Other: Gen: ?Overall well-appearing patient HEENT: No tympanic membrane irritation, no tenderness along the mastoid CV: RRR, no obvious murmurs appreciated Resp: ?No wheezing rales rhonchi no stridor moving air well Abd: ?Bowel sounds are present, no tenderness no rebound no rigidity MSK: FROM, strength 5/5 all extremities Skin: Warm, dry, intact, Neuro: ?Alert and oriented x3, moving upper and lower extremities symmetrically, no obvious facial asymmetry noted, no dysmetria upper or lower extremities, left-sided horizontal nonsustained nystagmus Course Course Course Narrative: This is a Rapid Medical Examination (RME) performed by Shanique Benitez PA-C in triage. Full HPI, ROS, assessment and treatment plan per primary provider in the Main ED. Hx: 69 yo M here for L ear discomfort and dizziness x2 weeks. seen in ED at [facility] 2 weeks ago for clot in the lungs and a little bit of stroke on MRI . seems to be unclear on what he was discharged with. started on eliquis. reports L ear discomfort and dizziness continued since. dizziness worse w/ movement of his head. Plan: basic labs - will request records from [facility]. Medical Decision Making Medical Decision Making [facility] Narrative: 12:34 PM 11/25/2024 (Dr. Deshawn Lin): Overall well-appearing patient, see my [facility] record review as below, nothing on exam to suspect intracranial hemorrhage or cerebellar stroke, we did not feel further imaging is indicated, differential diagnosis as below, I believe patient has peripheral vertigo due to what sounds like chronically irritated left ear without any evidence for mastoiditis acute otitis media or externa I will prescribe him something some for symptomatic control Differential Diagnosis Differential Diagnoses: The differential diagnosis associated with the presentation includes (Cerebellar stroke, thalamic stroke, vertigo, mastoiditis, acute otitis media) Admission/Observation Consideration of admission/observation: Escalation of care including admission/observation considered Lab Data [facility] Lab Attestation statement: I reviewed the patient's lab results. Independent Interpretation I performed an independent interpretation of an: EKG (67 beats per minute otherwise normal ECG without dysrhythmia, AV hakan blocks or ST-T changes to suspect underlying ACS, my independent interpretation) External Record Review External record reviewed: Inpatient record and Outside ED record [facility] records reviewed, he was discharged from [facility] on 10/25/2024 when he presented with dizziness, head CT suspicious for parietal lesion, had MRI of the brain did not reveal any acute stroke, also had a small/subsegmental PE discharged on Eliquis Tests considered The following testing was considered but not selected: CT brain Prescription Management I considered prescription management with: Pain Medication and Antibiotic Discharge Plan Discharge Clinical Impression: Benign paroxysmal positional vertigo of left ear Instructions: Vertigo (ED) Additional Instructions: I think your irritating your ear quite a bit with long nails which is likely contributing to your vertigo, use patch that is prescribed can be changed every 3 days meclizine as needed and ear drops to help with the itch Prescriptions: New scopolamine base 1 mg over 3 days patch 3 day 1 patch transdermal Q3D PRN (Reason: vertigo) 7 Days Qty: 4 0RF meclizine 12.5 mg tablet 12.5 mg PO TID PRN (Reason: vertigo) 5 Days Qty: 20 0RF fluocinolone acetonide oil [Flac Otic Oil] 0.01 % drops 5 drp otic (ear) left BID 7 Days Qty: 20 0RF No Action pravastatin 10 mg tablet 10 mg PO BEDTIME Qty: 90 1RF albuterol sulfate 90 mcg/actuation HFA aerosol inhaler 2 puff inhalation Q4H PRN (Reason: Shortness Of Breath Or Wheezing) omeprazole 40 mg capsule,delayed release(DR/EC) 40 mg PO DAILY Qty: 90 1RF zqsdfjjaim-oftthqvjqtypi-tclu 50-325-40 mg tablet 1 tab PO DAILY PRN (Reason: Headache) Qty: 15 0RF lidocaine [Aspercreme (lidocaine)] 4 % adhesive patch,medicated 1 patch topical DAILY PRN (Reason: pain) Qty: 30 0RF Eliquis 5 mg tablet 5 mg PO BID fluticasone furoate-vilanterol [Breo Ellipta] 100-25 mcg/dose blister with device 1 inh inhalation DAILY Qty: 60 3RF Print Language: South African
--- NOTE | 2024-11-25 11:57 | ECG_ITS ---
Test Reason : DIZZINESS Blood Pressure : */* mmHG Vent. Rate : 74 BPM Atrial Rate : 74 BPM P-R Int : 180 ms QRS Dur : 98 ms QT Int : 380 ms P-R-T Axes : 36 -46 25 degrees QTcB Int : 421 ms Normal sinus rhythm Left axis deviation Incomplete right bundle branch block Anterior infarct (cited on or before 31-Dec-2017) Abnormal ECG When compared with ECG of 31-Dec-2017 01:06, No significant change was found Referred By: Liseth Benitez Electronically Signed By: Collins Dupont
[2024-11-25 12:15] LABS: MANUAL DIFF FLAG NO
[2024-11-25 12:20] LABS: Hematocrit 42.3 % (42.0-52.0); Hemoglobin 15.0 g/dl (14.0-18.0); Imm Gran Abs Auto 0.03 X10*3/uL (0.00-0.03); Imm Gran Pct Auto 0.4 % (0.0-0.4); Lymphocytes Absolute Auto 1.9 X10*3/uL (1.2-4.9); Mean Corpuscular HGB Conc 35.5 g/dl (31.0-36.0); Mean Corpuscular Hemoglobin 30.1 pg (27.0-33.0); Mean Corpuscular Volume 84.9 fL (80.0-98.0); NRBC Abs Auto 0.000 X10*3/uL (0.0-0.012); NRBC Pct Auto 0.0 /100WBC (0.0-0.2); Platelet Count 258 X10*3/uL (160-400); Red Blood Count 4.98 X10*6/uL (4.60-5.80); White Blood Count 7.2 X10*3/uL (4.8-10.8)
[2024-11-25 12:24] VITALS: BP 157/73; PULSE 75; RESP 16; O2SAT 97
--- NOTE | 2024-11-25 12:31 | ECG_ITS ---
Test Reason : DIZZINESS Blood Pressure : */* mmHG Vent. Rate : 67 BPM Atrial Rate : 67 BPM P-R Int : 180 ms QRS Dur : 112 ms QT Int : 390 ms P-R-T Axes : 25 -42 38 degrees QTcB Int : 412 ms Normal sinus rhythm Left axis deviation Incomplete right bundle branch block Minimal voltage criteria for LVH, may be normal variant ( R in aVL ) Possible Anterior infarct (cited on or before 31-Dec-2017) Abnormal ECG When compared with ECG of 25-Nov-2024 12:03, No significant change was found Referred By: Deshawn Lin Electronically Signed By: Collins Dupont
[2024-11-25 12:32] LABS: Alanine Aminotransferase 20 U/L (0-40); Albumin Level 4.3 g/dL (3.5-5.0); Alkaline Phosphatase 52 U/L (39-117); Anion Gap 10 (12-20); Aspartate Amino Transferase 21 U/L (5-37); Blood Urea Nitrogen 15 mg/dL (9-16); Calcium 8.7 mg/dL (8.4-10.2); Carbon Dioxide 29 mmol/L (22-29); Chloride 106 mmol/L (96-108); Creatinine Clr Calc Pharmacy 81.9; Estimated Glomerular Filt Rate > 60; Magnesium 2.0 mg/dL (1.6-2.6); Potassium 3.9 mmol/L (3.3-5.1); Sodium 141 mmol/L (135-145); Total Protein 6.7 g/dL (6.5-8.0)
--- NOTE | 2024-11-25 12:35 | PC.NURSE ---
Addendum entered by Yulisa Groves RN 11/25/24 12:37: Patient is a 69 year old male, former minimal smoker, with underlying asthma, ?LUCINA non compliant with CPAP and h/o recent unprovoked PE 10/24/2024 on Eliquis. He was referred by PCP for pulmonary evaluation. He initially was evaluated at [facility] with acute onset dizziness and intermittent right sided chest pain. Ddimer elevated and underwent CTA which revealed a solitary subsegmental pulmonary embolism in the right upper lobe without radiographic findings to indicate right heart strain. He was started on a heparin drip and transitioned to Eliquis. Today her presents with left ear fullness with assoc dizziness. Lungs clear bilat. Respirations even and non-labored. Abdomen soft, non-tender with positive bowel sounds. Positive pedal pulses with no edema. Original Note: Medical History Laboratory examination ordered as part of a routine general medical examination HTN (hypertension) Sleep apnea GERD (gastroesophageal reflux disease) Chest pain Dyspnea on exertion History of palpitations COPD (chronic obstructive pulmonary disease) Preop pulmonary/respiratory exam
[2024-11-25 13:01] VITALS: BP 157/73; PULSE 75; RESP 16; TEMP 36.2; O2SAT 97
== END 2024-11-25 13:46 | disposition home or self-care (01) ==
LOC: HO.ED 13:09
PROVIDERS: Physician Assistant Medical; Emergency Provider Emergency Medicine; PCP Internal Medicine
DX: H81.12 Benign paroxysmal vertigo, left ear (principal); Z87.891 Personal history of nicotine dependence; G47.33 Obstructive sleep apnea (adult) (pediatric); Z79.01 Long term (current) use of anticoagulants
CPT/HCPCS: 36415; 80053; 83735; 85025; 93005; 99283; 99285

== ENCOUNTER → 2024-11-25 11:57 | Outpatient (BNV) | payer MEDICARE, MEDICAID, SELFPAY | PROVIDERS: Emergency Provider Emergency Medicine; PCP Internal Medicine; Visit Provider Internal Medicine Cardiovascular Disease | DX: I45.10 Unspecified right bundle-branch block (principal); I25.2 Old myocardial infarction | CPT/HCPCS: 93010 ==